=== PATIENT | female | born 1985 | race Caucasian/White ===

== ENCOUNTER 2022-03-10 20:53 | Emergency (ER) | payer OTHER, MEDICAID ==
[~2022-03-10] VITALS: Ht 162.6 cm; Wt 104.0 kg
[2022-03-10] MEDS ORDERED: LORAZEPAM 2MG/ML CPJ IV STA (21:32)
[2022-03-10] MEDS ORDERED: HALOPERIDOL LACTATE 5MG/ML VIAL IM STA (21:32)
[2022-03-10] MEDS ORDERED: SODIUM CHLORIDE 0.9% 1,000 ML IV ONE (21:45)
[2022-03-10 22:28] LABS: BASOPHILS % 0.4 % (0.0-2.0); HEMOGLOBIN. 15.4 g/dL (12.0-16.0); LYMPHOCYTES % 7.5 % (20.0-50.0); MEAN CORPUSCULAR HEMOGLOBIN 29.6 pg (28.0-32.0); MEAN CORPUSCULAR VOLUME 84.5 fL (81.0-99.0); MEAN PLATELET VOLUME 9.3 fl (7.4-10.4); MONOCYTES % 7.9 % (2.0-8.0); NEUTROPHILS % 84.2 % (40.0-76.0); PLATELET 294 x1000/uL (130-400); RED CELL DISTRIBUTION WIDTH 13.8 % (11.6-14.6)
[2022-03-10 22:37] LABS: CHLORIDE 101 mEq/L (98-107)
[2022-03-10 22:45] LABS: CLARITY URINE TURBID (CLEAR); COLOR URINE DARK YELLOW (YELLOW); KETONES URINE 4+ (NEGATIVE); LEUKOCYTE ESTERASE URINE TRACE (NEGATIVE); NITRITE URINE NEGATIVE (NEGATIVE); OCCULT BLOOD URINE 1+ (NEGATIVE); PH URINE 5.5 (4.5-8.0); PROTEIN URINE 2+ (NEGATIVE); SPECIFIC GRAVITY URINE 1.026 (1.005-1.030)
[2022-03-10 22:46] LABS: ETHANOL BLOOD < 10 mg/dL
[2022-03-10 23:15] LABS: *BARBITURATES SCREEN URINE NEGATIVE (NEGATIVE); *BENZODIAZEPINES SCREEN URINE NEGATIVE (NEGATIVE); *COCAINE SCREEN URINE NEGATIVE (NEGATIVE); METHADONE URINE SCREEN NEGATIVE (NEGATIVE); OPIATES URINE SCREEN NEGATIVE (NEGATIVE); PHENCYCLIDINE URINE SCREEN NEGATIVE (NEGATIVE)
[2022-03-10 23:16] LABS: *AMPHETAMINES SCREEN URINE PRESUMTIVE POSITIVE (NEGATIVE); CANNABINOID URINE SCREEN PRESUMTIVE POSITIVE (NEGATIVE)
[2022-03-10] MEDS ORDERED: POTASSIUM CHLORIDE 20MEQ TABLET SR PO STA (23:26)
[2022-03-11] MEDS ORDERED: POTASSIUM CHLORIDE 20MEQ TABLET SR PO NR (05:00)
[2022-03-11 10:27] VITALS: BP 113/66
== END 2022-03-11 10:28 | disposition home or self-care (01) ==
LOC: ER 20:53
DX: F19.129 Other psychoactive substance abuse with intoxication, unspecified (principal); Z90.49 Acquired absence of other specified parts of digestive tract
CPT/HCPCS: 36415; 80053; 80305; 80307; 80320; 80329; 81003; 85025; 93005; 96361; 96372; 96374; 99285; J1630; J2060; J7030; Z7610; G0480